=== PATIENT | female | born 1995 | race Caucasian/White ===

== ENCOUNTER 2020-04-16 20:07 | Emergency (ER) | payer MEDICAID ==
[2020-04-16] MEDS ORDERED: SODIUM CHLORIDE 0.9% (FLUSH) 10 ML SYG IV PRN (20:10)
[2020-04-16] MEDS ORDERED: SODIUM CHLORIDE 0.9% 1000ML 1,000 ML IVS ONE (20:10)
--- NOTE | 2020-04-16 20:11 | ED.PDOC ---
History of Present Illness - General Time Seen by Provider: 04/16/20 20:10 Source: patient - History of Present Illness Initial Comments: 24-year-old female who presents with chief complaint of abdominal pain. Onset about 3 weeks ago and persistent, located to bilateral lower abdomen, worse on the right, radiates from the bilateral lower back region across to the bilateral lower abdominal regions, now reports is constant and sharp/stabbing, 9/10 arlin rity, worse with eating/drinking, not worse with urination. Denies any fevers, chills, dysuria/hematuria. She does report some nausea and 3 episodes of nonbloody nonbilious emesis of the past 48 hours. She states that her last bowel movement once more than 1 week ago and believes she may be constipated. She states she was seen about 3 weeks ago at [facility] for the same issue and diagnosed with urinary tract infection and prescribed 2 antibiotics. She states she took them for 1 week and had some relief of urinary symptoms but reports the pain is been persistent. Denies any history of kidney stones. She has never had any abdominal surgeries. She has never been . Reports her last menstrual period was 1 week ago. Allergies/Adverse Reactions: Allergies NO KNOWN ALLERGY Allergy (Verified 04/16/20 20:52) Home Medications: Ambulatory Orders Cephalexin Monohydrate [Keflex] 500 mg PO BID 5 Days #10 cap 04/16/20 Polyethylene Glycol 3350 [Miralax] 17 gm PO DAILY PRN 20 Days #20 pckt 04/16/20 Review of Systems - Review of Systems Review of Systems: 04/16/20 20:25 as per HPI All other Systems: Reviewed and Negative Family Medical History - Family History Mother Living Status: Unknown Physical Exam - Physical Exam General Appearance: Alert, Comfortable, No apparent distress, Obese Eye Exam: bilateral normal Ears, Nose, Throat: normal ENT inspection, normal pharynx Neck: non-tender, full range of motion, supple, normal inspection Respiratory: lungs clear, normal breath sounds, no respiratory distress, no accessory muscle use Cardiovascular/Chest: normal peripheral pulses, regular rate, rhythm, no edema, no gallop, no JVD, no murmur Peripheral Pulses: radial,right: 2+, radial,left: 2+ Gastrointestinal/Abdominal: soft, no organomegaly, no pulsatile mass, abnormal bowel sounds - Diminished throughout, tenderness - Mild to right lower quadrant and suprapubic region without rebound or guarding Back Exam: normal inspection, no CVA tenderness, no vertebral tenderness Extremity: normal range of motion, non-tender, normal inspection, no pedal edema, no calf tenderness, normal capillary refill 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 -UA with 3-5 WBCs, trace leuk esteraseequivocal for possible UTI. Otherwise labs are largely unremarkable. hCG negative. X-ray of the abdomen reveals nonobstructive bowel gas pattern does show moderate stool in the ascending colon, suspicious for constipation. Discussed all findings with the patient along with diagnoses of constipation and urinary tract infection. We will give Toradol 30 mg IV in the ED for pain along with MiraLAX and Keflex to begin treating the constipation and UTI. Will send home with prescriptions of MiraLAX and Keflex as well. Advised to follow-up closely with her PCP. Discharge to home in good condition, return warnings discussed at length. Héctor Root MD Billing #[id number] 04/16/20 20:10 IV Care:Saline Lock per Protoc QSHIFT Sodium Chloride 0.9% (Flush) [Saline Flush Syringe] 10 ml IV PRN PRN Laboratory Results - last 24 hr 04/16/20 04/16/20 04/16/20 20:35 20:35 20:35 WBC 7.0 RBC 4.29 Hgb 13.5 Hct 39.0 MCV 90.8 MCH 31.4 H MCHC 34.6 RDW 12.6 Plt Count 283 MPV 7.9 Absolute Neuts (auto) 4.30 Absolute Lymphs (auto) 1.80 Absolute Monos (auto) 0.70 Absolute Eos (auto) 0.10 Absolute Basos (auto) 0.10 Neutrophils % 61.1 Lymphocytes % 26.1 Monocytes % 10.4 H Eosinophils % 1.3 Basophils % 1.1 Sodium 138 Potassium 3.3 L Chloride 109 Carbon Dioxide 21 Anion Gap 11.3 L BUN 6 L Creatinine 0.70 BUN/Creatinine Ratio 8.6 L Random Glucose 88 Serum Osmolality 272.7 L Lactic Acid 1.3 Calcium 8.9 Total Bilirubin 0.9 Direct Bilirubin 0.1 Indirect Bilirubin 0.8 AST 16 ALT 18 Alkaline Phosphatase 84 Serum Total Protein 7.3 Albumin 3.8 Amylase 41 Lipase 26 Serum HCG, Qual Urine Color Urine Appearance Urine pH Ur Specific [place] Urine Protein Urine Glucose (UA) Urine Ketones Urine Blood Urine Nitrite Urine Bilirubin Urine Urobilinogen Ur Leukocyte Esterase Urine RBC Urine WBC Ur Epithelial Cells Urine Bacteria 04/16/20 04/16/20 20:35 20:46 WBC RBC Hgb Hct MCV MCH MCHC RDW Plt Count MPV Absolute Neuts (auto) Absolute Lymphs (auto) Absolute Monos (auto) Absolute Eos (auto) Absolute Basos (auto) Neutrophils % Lymphocytes % Monocytes % Eosinophils % Basophils % Sodium Potassium Chloride Carbon Dioxide Anion Gap BUN Creatinine BUN/Creatinine Ratio Random Glucose Serum Osmolality Lactic Acid Calcium Total Bilirubin Direct Bilirubin Indirect Bilirubin AST ALT Alkaline Phosphatase Serum Total Protein Albumin Amylase Lipase Serum HCG, Qual Negative Urine Color Other Urine Appearance Clear Urine pH 5.5 Ur Specific [place] >= 1.030 Urine Protein 30 Urine Glucose (UA) Negative Urine Ketones Trace Urine Blood Small H Urine Nitrite Negative Urine Bilirubin Small H Urine Urobilinogen 0.2 Ur Leukocyte Esterase Trace H Urine RBC 1-3 Urine WBC 3-5 H Ur Epithelial Cells 5-10 Urine Bacteria 1+ - EKG/XRAY/CT XRAY: abdomen - Nonobstructive bowel gas pattern per my read. Moderate amount of stool appreciated in the ascending colon Departure - Departure Clinical Impression: Constipation Qualifiers: Constipation type: unspecified constipation type Qualified Code(s): K59.00 - Constipation, unspecified UTI (urinary tract infection) Qualifiers: Urinary tract infection type: acute cystitis Hematuria presence: without hematuria Qualified Code(s): N30.00 - Acute cystitis without hematuria Time of Disposition: 21:07 Disposition: Discharge to Home or Self Care Condition: Good Instructions: Constipation, Adult (DC) Diet: other - high fiber diet Activity: increase activity as tolerated Prescriptions: Cephalexin Monohydrate [Keflex] 500 mg PO BID 5 Days #10 cap Polyethylene Glycol 3350 [Miralax] 17 gm PO DAILY PRN 20 Days #20 pckt PRN Reason: Constipation Home Medications: Ambulatory Orders Cephalexin Monohydrate [Keflex] 500 mg PO BID 5 Days #10 cap 04/16/20 Polyethylene Glycol 3350 [Miralax] 17 gm PO DAILY PRN 20 Days #20 pckt 04/16/20 Additional Instructions: Remain well-hydrated and advance your diet and activity level as tolerated. I strongly advised that adhere to a high-fiber diet and avoid constipating foods such as cheese, large amounts of dairy products, fast food, junk food, etc. Take the MiraLAX 1-2 times daily as needed until you are having soft and regular bowel movements. Return to the ED if he develop concerning symptoms such as worsening or severe abdominal pain, intractable nausea and vomiting, bloody vomiting or diarrhea, fevers, painful urination or blood in urine, etc. Follow- up with your primary care physician is advised in the next 1 to 2 weeks for repeat evaluation or sooner as needed.
[2020-04-16] MEDS ORDERED: ONDANSETRON INJ 4 MG/2 ML VIAL IV ONE (20:22)
--- NOTE | 2020-04-16 20:58 | RAD ---
EXAM: Abdomen 1 View CLINICAL INDICATION: Abdominal pain COMPARISON: There is no previous study for comparison. FINDINGS: A single view of the abdomen was obtained. There is a nonspecific bowel gas pattern with no radiographic evidence of bowel obstruction. There are no dilated loops of small bowel. There is no evidence of pneumoperitoneum or pathologic calcifications. IMPRESSION: No evidence of an acute intraabdominal process. Electronically signed by: Brandan Valle MD 04/16/2020 8:56 PM CDT
[2020-04-16] MEDS ORDERED: POLYETHYLENE GLYCOL 3350 17 GM PCKT PO ONE (21:01)
[2020-04-16] MEDS ORDERED: KETOROLAC TROMETHAMINE INJ 30 MG/ML VIAL IV ONE (21:01)
[2020-04-16] MEDS ORDERED: POTASSIUM CHLORIDE 20 MEQ TAB PO ONE (21:01)
[2020-04-16] MEDS ORDERED: CEPHALEXIN 500MG CAP (ER DISP) PO ONE (21:10)
[2020-04-16] MEDS ORDERED: CEPHALEXIN MONOHYDRATE 500 MG CAP PO ONE (21:11)
[2020-04-16 21:43] VITALS: BP 103/72; TEMP 97.3; O2SAT 99
== END 2020-04-16 21:44 | disposition home or self-care (01) ==
LOC: ER 20:07
DX: K59.00 Constipation, unspecified (principal); N30.00 Acute cystitis without hematuria; R11.2 Nausea with vomiting, unspecified
CPT/HCPCS: 36415; 74018; 80048; 80076; 81001; 82150; 83605; 83690; 84703; 85025; A4216; J1885; J2405; J7030

== ENCOUNTER → 2020-06-21 | Outpatient (CLI) | payer OTHER ==
--- NOTE | 2020-06-22 10:49 | MAM ---
EXAM DESCRIPTION: 3D Diagnostic, Right (accession [id number]), Breast,Right (accession [id number]): Ultrasound CLINICAL HISTORY: [address]/SONO right breast mass seen on CT scan of the abdomen Lifetime risk of developing breast cancer (Tyrer-Cuzick model)(%): Not calculated COMPARISON: . CT scan of the abdomen and pelvis June 01. No prior breast imaging available. TECHNIQUE: Right breast LM, CC, and MLO projection full-field images, digital tomosynthesis technique. Right breast 2-D digital full-field images: , CC, and MLO projections. CAD available for 2-D images.. Transcutaneous scanning of the right breast utilizing lamanzar-scale and Doppler modes. Scanning performed by the multiple pressure riveter operator ; observation by Dr. Torres. FINDINGS: The breast parenchymal density pattern is: Heterogeneously dense breast tissue, which may obscure small masses. No skin thickening or nipple retraction mostly circumscribed mass at the 6:30 sector of the breast, 10 cm from the nipple. Slightly more dense than surrounding fibroglandular tissues. Dimensions are 1.4 x 1.3 x 1.2 cm. Faint calcifications. Probable fibroadenoma. Dearing density with mostly circumscribed margins and minimal notching of the margin and fatty density in the axillary tail. Approximately 12 x 8 mm. Most likely a lymph node. No other suspicious microcalcifications in the right breast and no other mass or focal asymmetry. Ultrasound: Scanning of the region of interest inferior posterior left breast. Mostly fibroglandular tissues with minimal tissues the anterior layer. Mostly circumscribed hypoechoic mass with heterogeneity 8 cm from the nipple at 7:00. Dimensions are 14 x 10 x 12 mm. Parallel orientation with mostly posterior fatty acoustic enhancement with edge shadowing. Not vascular. Most likely a fibroadenoma. No cyst or fluid collection. No large calcifications. No overlying skin changes. IMPRESSION: BI-RADS Category 4: SUSPICIOUS. Sub-category 4A - Low Suspicion For Malignancy. RECOMMENDATION: Surgical consultation recommended; consider tissue diagnosis if there are no clinical contraindications. The FINDINGS and FOLLOW-UP plan were reviewed in person with the patient following the examination. Written communication explaining the IMPRESSION and FOLLOW-UP will be mailed to the patient and referring care provider. Electronically signed by: Víctor Torres MD 06/22/2020 10:47 AM CDT
== END ==
LOC: MAMMO 10:12
PROVIDERS: ATTEND Nurse Practitioner Family
DX: N63.13 Unspecified lump in the right breast, lower outer quadrant (principal)
CPT/HCPCS: 76641; 77065; G0279